=== PATIENT | female | born 1990 | race Caucasian/White ===

== ENCOUNTER 2017-08-12 10:59 | Day surgery (SDC) | payer MEDICAID ==
[2017-08-11 11:04] LABS: BASOPHILS % (AUTO) 0.4 % (0-1); EOSINOPHILS # (AUTO) 0.3 X10'3 (0-0.9); LYMPHOCYTES # (AUTO) 2.4 X10'3 (1.1-4.8); LYMPHOCYTES % (AUTO) 36.6 % (21-51); MEAN CORPUSCULAR HEMOGLOBIN 30.4 PG (27.0-31.0); MEAN CORPUSCULAR HGB CONC 34.1 % (33.0-36.5); MEAN PLATELET VOLUME 8.1 FL (7.4-10.4); MONOCYTES # (AUTO) 0.5 X10'3 (0-0.9); MONOCYTES % (AUTO) 7.1 % (2-12); NEUTROPHILS # (AUTO) 3.3 X10'3 (1.8-7.7); NEUTROPHILS % (AUTO) 50.9 % (42-75); PRE OP HEMATOCRIT 41.8 % (35.0-45.0); PRE OP HEMOGLOBIN 14.2 g/dL (12.0-16.0); PRE OP PLATELET COUNT 331 X10'3 (140-440); RED BLOOD COUNT 4.69 X10'6 (4.20-5.60)
[2017-08-11 11:13] LABS: INR 1.1 INR; PARTIAL THROMBOPLASTIN TIME 27 SECONDS (22-32)
[2017-08-11 11:16] LABS: CLARITY,URINE CLOUDY (Clear); COLOR,URINE YELLOW (Yellow); GLUCOSE, URINE NEGATIVE (Neg); KETONES,URINE NEGATIVE (Neg); LEUKOCYTE ESTERASE ,URINE SMALL (Neg); NITRITES, URINE NEGATIVE (Neg); OCCULT BLOOD,URINE NEGATIVE (Neg); PROTEIN,URINE NEGATIVE (Neg); UROBILINOGEN,URINE 0.2 E.U/dL (0.2-1.0)
[2017-08-11 11:17] LABS: HCG SERUM QL NEGATIVE
[2017-08-11 11:17] LABS: UA COLLECTION TYPE CLN CATCH MIDSTREAM
[2017-08-11 11:19] LABS: ALBUMIN 4.1 G/DL (3.4-5.0); ALBUMIN/GLOBULIN RATIO 1.2 (1.1-1.5); ALKALINE PHOSPHATASE 63 IU/L (46-116); BLOOD UREA NITROGEN 12 MG/DL (7-18); CALCIUM 9.2 MG/DL (8.5-10.1); CHLORIDE 107 MMOL/L (99-107); PRE OP ALT 28 U/L (30-65); PRE OP ANION GAP 7 (8-16); PRE OP AST 16 U/L (10-37); PRE OP BILIRUB, TOTAL 0.6 MG/DL (0.0-1.0); PRE OP GLUCOSE 96 MG/DL (70-104); PRE OP SODIUM 141 MMOL/L (135-145); TOTAL CARBON DIOXIDE 27.5 MMOL/L (24-32); TOTAL PROTEIN 7.6 G/DL (6.4-8.2); eGFR 87 ML/MIN
[2017-08-11 11:24] LABS: MUCUS STRANDS MANY /LPF (Neg); SQUAMOUS EPITHELIAL CELL,UR MANY /LPF (FEW)
[2017-08-11 11:25] LABS: BACTERIA,URINE 3+ /HPF (Neg)
[2017-08-11 11:26] LABS: RBC,URINE 0-2 /HPF (0-2)
[2017-08-12] VITALS (10 sets, daily range): BP systolic 102–138; BP diastolic 57–79
[~2017-08-12] VITALS: Ht 172.7 cm; Wt 66.7 kg
[~2017-08-12 10:59] MED LIST: NO HOME MEDS; clindamycin-Cleocin 900mg/D5W 50 ML IV ONE; famotidine 20mg tablet PO ONE; gentamicin inj 300 MG in normal saline 100ml IV soln 92.5 ML IV ONE; ringers solution, lacted 1,000 ML IV SCH
[2017-08-12] MEDS ORDERED: LIDOcaine 1% (10mg/ml) 2ml vial ONE (11:03)
[2017-08-12] MEDS ORDERED: BUPIVAcaine/PF 2.5 mg/ml (0.25%) 30ml vial ONE (14:04)
[2017-08-12] MEDS ORDERED: sevoflurane 250ml liquid IH ONE (14:15)
[2017-08-12] MEDS ORDERED: fentaNYL/PF 50MCG/1 ML 2ML syringe ONE (14:18)
[2017-08-12] MEDS ORDERED: midazolam 2 mg/2 ml injection ONE (14:18)
[2017-08-12] MEDS ORDERED: propofol inj 20 ML IV ONE (14:42)
[2017-08-12] MEDS ORDERED: LIDOcaine 2% (20mg/ml) 5ml vial ONE (14:43)
[2017-08-12] MEDS ORDERED: rocuronium 10mg/ml inj IV ONE (14:43)
[2017-08-12] MEDS ORDERED: ondansetron/PF 4mg/2ml inj ONE (14:43)
[2017-08-12] MEDS ORDERED: dexamethasone sod phosphate 4mg/ml inj. ONE (14:43)
[2017-08-12] MEDS ORDERED: ringers solution, lacted 1,000 ML IV ONE (14:49)
[2017-08-12] MEDS ORDERED: labetalol 20mg/4ml (5mg/ml) syringe IV PRN (14:50)
[2017-08-12] MEDS ORDERED: hydrALAZINE 20mg/ml inj. IV PRN (14:50)
[2017-08-12] MEDS ORDERED: ondansetron/PF 4mg/2ml inj IV PRN (14:50)
[2017-08-12] MEDS ORDERED: fentaNYL/PF 50MCG/1 ML 2ML syringe IV ONE (14:50)
[2017-08-12] MEDS ORDERED: meperidine/PF 25mg/ml syringe IV PRN (14:50)
[2017-08-12] MEDS ORDERED: meperidine/PF 25mg/ml syringe IV ONE (14:50)
[2017-08-12] MEDS ORDERED: neostigmine methylsulfate 1 MG/ML 10ml vial ONE (14:57)
[2017-08-12] MEDS ORDERED: glycopyrrolate 0.2mg/ml inj ONE (14:58)
[2017-08-12] MEDS: meperidine/PF 25mg/ml syringe IV PRN ×2 (15:20→15:40)
[2017-08-12] MEDS ORDERED: HYDROcodone/acetaminophen 10/325mg tab PO ONE (15:50)
== END 2017-08-12 16:35 | disposition home or self-care (01) ==
LOC: PAS 10:59
PROVIDERS: ATTEND Surgery
DX: K42.9 Umbilical hernia without obstruction or gangrene (principal); F17.210 Nicotine dependence, cigarettes, uncomplicated; Z88.0 Allergy status to penicillin; Z88.1 Allergy status to other antibiotic agents; Z88.6 Allergy status to analgesic agent; J44.9 Chronic obstructive pulmonary disease, unspecified
CPT/HCPCS: 36415; 49585; 80053; 81001; 84703; 85025; 85610; 85730; A6257; J1100; J1580; J2001; J2175; J2250; J2405; J2704; J2710; J3010; J3490; J7030; J7120; A7000

== ENCOUNTER 2017-11-25 15:10 | Emergency (ER) | payer MEDICAID ==
[~2017-11-25] VITALS: Ht 170.2 cm; Wt 69.0 kg
[~2017-11-25 15:10] MED LIST changes: +DICY10CA88 PO; +METO10TA3 PO; -clindamycin-Cleocin 900mg/D5W 50 ML IV ONE; -famotidine 20mg tablet PO ONE; -gentamicin inj 300 MG in normal saline 100ml IV soln 92.5 ML IV ONE; -ringers solution, lacted 1,000 ML IV SCH
[2017-11-25 15:20] VITALS: BP 125/74
== END 2017-11-25 16:54 | disposition home or self-care (01) ==
LOC: ER 15:11
DX: O26.891 Other specified pregnancy related conditions, first trimester (principal); G89.29 Other chronic pain; G43.909 Migraine, unspecified, not intractable, without status migrainosus; Z88.0 Allergy status to penicillin; Z88.5 Allergy status to narcotic agent; Z88.1 Allergy status to other antibiotic agents; Z3A.12 12 weeks gestation of pregnancy
CPT/HCPCS: 99281; 99284